=== PATIENT | female | born 1980 | race Two or more races ===

== ENCOUNTER 2018-12-07 23:22 | Inpatient (IN) ==
[2018-12-07] MEDS ORDERED: BUTORPHANOL 2 MG/ML VIAL IV PRN (23:37)
[2018-12-07] MEDS ORDERED: ONDANSETRON 4 MG/2 ML VIAL IV PRN (23:37)
[2018-12-07] MEDS ORDERED: CITRIC ACID/SODIUM CITRATE 30 ML UDCUP PO ONE (23:45)
[2018-12-07] MEDS ORDERED: OXYTOCIN/LR 20 UNIT/1,000 ML BAG IV SCH (23:45)
[2018-12-07] MEDS ORDERED: FAMOTIDINE 20 MG/2 ML VIAL IV ONE (23:45)
[2018-12-07 23:58] LABS: Basophils % 0.3 % (0.0-0.8); Eosinophils # 0.1 10*3/uL (0.0-0.87); Eosinophils % 0.7 % (0.00-10.9); Hematocrit 36.2 VOL% (35.7-47.0); Hemoglobin 11.5 GM/DL (12.0-16.0); Lymphocytes # 1.5 10*3/uL (1.4-4.0); Lymphocytes % 14.2 % (21.3-54.2); Mean Corpuscular HGB Conc 31.8 GM/DL (32-36); Mean Corpuscular Volume 88.9 FL (87-102); Mean Platelet Volume 11.6 FL (9.6-12.0); Monocytes % 5.8 % (1.7-12.7); Platelet Count 174 T/CUMM (130-400); Red Blood Count 4.07 MC/CUMM (3.8-5.5); Red Cell Distribution Width 15.9 % (9.3-17.3); White Blood Count 10.2 T/CUMM (4-12)
[2018-12-07] MEDS ORDERED: LACTATED RINGERS 1,000 ML IV ONE (23:58)
[2018-12-08] MEDS ORDERED: ePHEDrine 50 MG/ML AMP ONE (00:02)
[2018-12-08 00:13] LABS: Alanine Aminotransferase 20 U/L (13-56); Albumin 2.7 G/DL (3.4-5.0); Alkaline Phosphatase 126 U/L (45-117); Aspartate Amino Transferase 21 U/L (0-37); Bilirubin,Total < 0.39 MG/DL (0.2-1.0); Blood Urea Nitrogen 7 MG/DL (7-18); Calcium 8.2 MG/DL (8.5-10.1); Glucose 196 MG/DL (74-106); Osmolality,Calculated 285.1 MOS/KG (273-304); Total Protein 6.5 G/DL (6.4-8.3)
[2018-12-08] MEDS: fentaNYL 2 MCG/ROPIV 0.2% EPID 100 ML EPIDURAL SCH ×2 (00:52→12:24)
[2018-12-08 02:14] LABS: Apearance,Urine CLEAR (Clear); Bilirubin,Urine Negative (Negative); Blood, Urine Negative (Negative); Glucose,Urine (UA) 50 mg/dL (Negative); Hyaline Casts,Urine 1 /LPF (0-3); Ketones,Urine Negative (Negative); Nitrite,Urine Negative (Negative); Protein,Urine Negative; RBC,Urine 2 /HPF (0-4); Urine Color Colorless (Yellow); Urine Specific Gravity 1.002 (1.001-1.035); Urine Urobilinogen < 2.0 EU/DL (0.2-1.0); WBC,Urine <1 /HPF (0-6)
[2018-12-08] MEDS: LACTATED RINGERS 1,000 ML IV SCH ×4 (06:00→18:12)
[2018-12-08] MEDS ORDERED: OXYTOCIN/LR 30 UNIT/1,000 ML BAG IV ONE (07:45)
[2018-12-08] MEDS ORDERED: METHYLERGONOVINE 0.2 MG/1 ML AMP ONE (08:54)
[2018-12-08] MEDS ORDERED: DEXTROSE 50% 25 GM/50 ML VIAL IV PRN ×2 (11:20→17:29)
[2018-12-08] MEDS ORDERED: GLUCAGON 1 MG VIAL IM PRN ×2 (11:20→17:29)
[2018-12-08] MEDS: IBUPROFEN 800 MG TABLET PO PRN ×2 (12:38→17:30)
[2018-12-08] MEDS: guaiFENesin 200 MG/10 ML UDCUP PO PRN (19:43)
[2018-12-08] MEDS: INSULIN REGULAR 100 UNIT/ML SUBCUT SCH ×2 (21:15→23:43)
[2018-12-09 06:23] LABS: Basophils % 0.4 % (0.0-0.8); Eosinophils # 0.1 10*3/uL (0.0-0.87); Eosinophils % 1.3 % (0.00-10.9); Hematocrit 31.8 VOL% (35.7-47.0); Immature Granulocytes % 0.7 %; Immature Granulocytes Absolute 0.07 #; Lymphocytes # 2.1 10*3/uL (1.4-4.0); Lymphocytes % 19.8 % (21.3-54.2); Mean Corpuscular HGB Conc 31.4 GM/DL (32-36); Mean Corpuscular Volume 88.8 FL (87-102); Mean Platelet Volume 12.4 FL (9.6-12.0); Monocytes % 5.6 % (1.7-12.7); Neutrophils % 72.2 % (38.7-73.9); Platelet Count 150 T/CUMM (130-400); Red Blood Count 3.58 MC/CUMM (3.8-5.5); Red Cell Distribution Width 15.9 % (9.3-17.3); White Blood Count 10.6 T/CUMM (4-12)
[2018-12-09] MEDS: IBUPROFEN 400 MG TABLET PO PRN ×2 (08:39→20:10)
[2018-12-09] MEDS: POTASSIUM CHLORIDE 20 MEQ TABLET PO SCH ×2 (08:40→20:09)
[2018-12-09] MEDS: INSULIN REGULAR 100 UNIT/ML SUBCUT SCH (08:41)
[2018-12-09] MEDS ORDERED: FLUTICASONE 50 MCG NASAL SPRAY 16 GM BOTTLE BOTH NARES SCH (09:00)
[2018-12-09] MEDS ORDERED: DOCUSATE SODIUM 100 MG CAPSULE PO PRN (10:18)
[2018-12-09] MEDS: DOCUSATE SODIUM 100 MG CAPSULE PO SCH ×2 (11:05→20:09)
[2018-12-10] MEDS: INSULIN REGULAR 100 UNIT/ML SUBCUT SCH ×2 (07:30→11:30)
[2018-12-10] MEDS: guaiFENesin 200 MG/10 ML UDCUP PO PRN (08:00)
[2018-12-10] MEDS: DOCUSATE SODIUM 100 MG CAPSULE PO SCH (08:00)
[2018-12-10] MEDS: POTASSIUM CHLORIDE 20 MEQ TABLET PO SCH (08:00)
[2018-12-10] MEDS: IBUPROFEN 400 MG TABLET PO PRN (09:30)
[2018-12-10 11:40] VITALS: BP 135/73
== END 2018-12-10 13:30 | disposition home or self-care (01) | DRG 807 ==
LOC: N.LDOUT 23:26 → N.LD 23:27 → N.OB 12-08 11:55
PROVIDERS: ADMIT Obstetrics & Gynecology; ATTEND Obstetrics & Gynecology